=== PATIENT | female | born 1970 | race Caucasian/White ===

== ENCOUNTER 2020-12-09 21:30 | Emergency (ER) | payer OTHER ==
[2020-12-09 21:53] VITALS: RESP 18
[2020-12-09] MEDS ORDERED: diphenhydrAMINE 50 MG/ML 1 ML VIAL IVP STA (23:56)
[2020-12-09] MEDS ORDERED: SODIUM CHLORIDE 0.9% 1,000 ML IV STA (23:56)
[2020-12-09] MEDS ORDERED: ONDANSETRON 4 MG/2 ML VIAL IVP STA (23:56)
[2020-12-09] MEDS ORDERED: KETOROLAC 15 MG/ML 1 ML VIAL IVP STA (23:57)
--- NOTE | 2020-12-10 00:11 | ED ---
Headache HPI - General Chief Complaint: Headache Stated Complaint: Headache,Body aches Time Seen by Provider: 12/09/20 23:44 Mode of arrival: ambulatory Limitations: no limitations - History of Present Illness Initial Comments: Patient is a 50-year-old female presenting to the emergency Department with complaints of a headache that started 2 days ago. She is also complaining of body aches, fatigue and decreased appetite. She denies any recent covid exposures. She denies any cough, no chest pain or shortness of breath, no abdominal pain. She does have some mild nausea no vomiting or diarrhea. She states she has had headaches in the past. She denies any changes in her vision. No falls or trauma. She has no further complaints at this time. Upon arrival to the ER, her vital signs are stable. - Related Data Allergies Allergy/AdvReac Type Severity Reaction Status Date / Time No Known Allergies Allergy Verified 12/09/20 21:53 Review of Systems ROS Statement: Those systems with pertinent positive or pertinent negative responses have been documented in the HPI. ROS Other: All systems not noted in ROS Statement are negative. Past Medical History Past Medical History: No Reported History History of Any Multi-Drug Resistant Organisms: None Reported Past Surgical History: No Surgical Hx Reported Past Psychological History: No Psychological Hx Reported Smoking Status: Never smoker Past Alcohol Use History: None Reported Past Drug Use History: None Reported General Exam - General Exam Comments Initial Comments: GENERAL: Patient is well-developed and well-nourished. Patient is nontoxic and in no acute distress. HEAD: Atraumatic, normocephalic. EYES: Pupils equal round and reactive to light, extraocular movements intact, sclera anicteric, conjunctiva are normal. Eyelids were unremarkable. ENT: TMs normal, nares patent, oropharynx clear without exudates. Moist mucous membranes. NECK: Normal range of motion, supple without lymphadenopathy or JVD. LUNGS: Unlabored respirations. Breath sounds clear to auscultation bilaterally and equal. No wheezes rales or rhonchi. HEART: Regular rate and rhythm without murmurs, rubs or gallops. ABDOMEN: Soft, nontender, normoactive bowel sounds. No guarding, no rebound. No masses appreciated. : Deferred MUSCULOSKELETAL: Normal extremities with adequate strength and normal range of motion, no pitting or edema. No clubbing or cyanosis. NEUROLOGICAL: Patient is alert and oriented x 3. Motor and sensory are also intact. Cranial nerves II through XII grossly intact. Symmetrical smile. Normal speech, normal gait. PSYCH: Normal mood, normal affect. SKIN: Warm, Dry, normal turgor, no rashes or lesions noted. Limitations: no limitations Course Vital Signs 12/09/20 12/10/20 12/10/20 21:50 00:42 02:01 Temperature 98.6 F 102.7 F H 101.2 F H Pulse Rate 101 H 87 88 Respiratory 18 18 18 Rate Blood Pressure 112/69 127/74 110/67 O2 Sat by Pulse 97 99 94 L Oximetry Medical Decision Making - Medical Decision Making Patient is a 50-year-old female here with headache, body aches that started 2 days ago. No fevers, no neck pain. Her exam is unremarkable. Rapid Covid test is positive. Patient has no respirations symptoms today. Patient be given fluids, Toradol and Zofran. She was given Tylenol as well. She reports improvement in her symptoms and is stable for discharge. I recommend continuing increase her fluids, Tylenol Motrin for any chills or body aches. Patient is in agreement with this plan of care. Return parameters were discussed patient and she verbalized understanding. - Lab Data Lab Results 12/09/20 Range/Units 21:57 Coronavirus (PCR) Detected A (Not Detectd) Disposition Clinical Impression: COVID-19, Headache Disposition: HOME SELF-CARE Condition: Stable Instructions (If sedation given, give patient instructions): Coronavirus Disease 2019 (COVID-19) Additional Instructions: Please return to the Emergency Department if symptoms worsen or any other concerns. Continue to alternate between Tylenol and Motrin for fevers, headaches or body aches. Is patient prescribed a controlled substance at d/c from ED?: No Referrals: None,Stated [Primary Care Provider] - 1-2 days Time of Disposition: 02:17
[2020-12-10] MEDS ORDERED: ACETAMINOPHEN TAB 500 MG TAB PO STA (00:40)
[2020-12-10 02:29] VITALS: BP 100/67; PULSE 84; TEMP 99
== END 2020-12-10 02:29 | disposition home or self-care (01) ==
LOC: EC 21:30
DX: U07.1 COVID-19 (principal); R51.9 Headache, unspecified
CPT/HCPCS: 87635; 99284; 96374; 96375 ×2; 96361 ×2; J1200; J2405; J1885

== ENCOUNTER 2020-12-12 18:20 | Emergency (ER) | payer OTHER ==
[2020-12-12 18:25] VITALS: PULSE 92; TEMP 98.2
[2020-12-12] MEDS ORDERED: KETOROLAC 15 MG/ML 1 ML VIAL IVP STA (20:50)
[2020-12-12] MEDS ORDERED: ONDANSETRON 4 MG/2 ML VIAL IVP STA (20:50)
[2020-12-12] MEDS ORDERED: SODIUM CHLORIDE 0.9% 1,000 ML IV STA (20:50)
[2020-12-12] MEDS ORDERED: LORazepam 2 MG/ML INJ IV STA (20:51)
--- NOTE | 2020-12-12 20:54 | ED ---
General Adult HPI - General Chief complaint: Recheck/Abnormal Lab/Rx Stated complaint: Covid+, SOB Time Seen by Provider: 12/12/20 20:34 Source: patient Mode of arrival: wheelchair Limitations: no limitations - History of Present Illness Initial comments: 50-year-old female without any significant past medical history presents to the emergency room for a chief complaint of not feeling well. Patient reports she tested positive for coronary virus a few days ago. Patient states that she just feels very nauseous. States she is achy all over. States she has been taking Motrin and Tylenol which keeps the temperature down but not the pain. Slight sh ortness of breath.Patient has no other complaints at this time including shortness of breath, chest pain, abdominal pain, nausea or vomiting, headache, or visual changes. - Related Data Previous Rx's Medication Instructions Recorded Ondansetron [Zofran ODT] 4 mg PO Q8HR PRN #15 tab 12/12/20 Allergies Allergy/AdvReac Type Severity Reaction Status Date / Time No Known Allergies Allergy Verified 12/12/20 18:22 Review of Systems ROS Statement: Those systems with pertinent positive or pertinent negative responses have been documented in the HPI. ROS Other: All systems not noted in ROS Statement are negative. Past Medical History Past Medical History: No Reported History History of Any Multi-Drug Resistant Organisms: None Reported Past Surgical History: No Surgical Hx Reported Past Psychological History: No Psychological Hx Reported Smoking Status: Never smoker Past Alcohol Use History: None Reported Past Drug Use History: None Reported General Exam Limitations: no limitations General appearance: alert, in no apparent distress Head exam: Present: atraumatic, normocephalic, normal inspection Eye exam: Present: normal appearance, PERRL, EOMI. Absent: scleral icterus, conjunctival injection, periorbital swelling ENT exam: Present: normal exam, mucous membranes moist Neck exam: Present: normal inspection, full ROM. Absent: tenderness, meningismus, lymphadenopathy Respiratory exam: Present: normal lung sounds bilaterally. Absent: respiratory distress, wheezes, rales, rhonchi, stridor Cardiovascular Exam: Present: regular rate, normal rhythm, normal heart sounds. Absent: systolic murmur, diastolic murmur, rubs, gallop, clicks GI/Abdominal exam: Present: soft, normal bowel sounds. Absent: distended, tenderness, guarding, rebound, rigid Course Vital Signs 12/12/20 12/12/20 18:22 21:58 Temperature 98.2 F Pulse Rate 92 92 Respiratory 22 16 Rate Blood Pressure 110/56 117/77 O2 Sat by Pulse 97 95 Oximetry Medical Decision Making - Medical Decision Making Vitals are stable. CBC CMP unremarkable. Chest x-ray does show bilateral pneumonia. Patient was given fluids and medication including Toradol and Zofran. She has significant improvement in her symptoms. States she was actually able to sleep. At this time patient is comfortable discharge home. I did discuss to try to get a pulse oximeter to monitor her oxygen. However if she feels shortness of breath is worsening she'll return to the emergency room. Otherwise she can follow up with primary care.I discussed this case with attending Dr. Munoz who agrees with this assessment and treatment plan. - Lab Data Result diagrams: 12/12/20 21:03 12/12/20 21:03 Lab Results 12/12/20 12/12/20 Range/Units 21:03 21:03 WBC 9.7 (3.8-10.6) k/uL RBC 4.63 (3.80-5.40) m/uL Hgb 13.8 (11.4-16.0) gm/dL Hct 40.1 (34.0-46.0) % MCV 86.5 (80.0-100.0) fL MCH 29.7 (25.0-35.0) pg MCHC 34.3 (31.0-37.0) g/dL RDW 13.1 (11.5-15.5) % Plt Count 212 (150-450) k/uL MPV 7.9 Neutrophils % 92 % Lymphocytes % 5 % Monocytes % 2 % Eosinophils % 0 % Basophils % 0 % Neutrophils # 9.0 H (1.3-7.7) k/uL Lymphocytes # 0.5 L (1.0-4.8) k/uL Monocytes # 0.1 (0-1.0) k/uL Eosinophils # 0.0 (0-0.7) k/uL Basophils # 0.0 (0-0.2) k/uL Sodium 136 L (137-145) mmol/L Potassium 3.4 L (3.5-5.1) mmol/L Chloride 103 (98-107) mmol/L Carbon Dioxide 25 (22-30) mmol/L Anion Gap 8 mmol/L BUN 9 (7-17) mg/dL Creatinine 0.79 (0.52-1.04) mg/dL Est GFR (CKD-EPI)AfAm >90 (>60 ml/min/1.73 sqM) Est GFR (CKD-EPI)NonAf 87 (>60 ml/min/1.73 sqM) Glucose 97 (74-99) mg/dL Calcium 8.5 (8.4-10.2) mg/dL Total Bilirubin 0.6 (0.2-1.3) mg/dL AST 37 H (14-36) U/L ALT 17 (4-34) U/L Alkaline Phosphatase 69 (38-126) U/L Total Protein 6.4 (6.3-8.2) g/dL Albumin 3.6 (3.5-5.0) g/dL Disposition Clinical Impression: COVID-19 Disposition: HOME SELF-CARE Condition: Good Instructions (If sedation given, give patient instructions): Coronavirus Disease 2019 (COVID-19) Additional Instructions: Please follow up with primary care in 1-2 days. Return to the emergency room for any worsening symptoms. Prescriptions: Ondansetron [Zofran ODT] 4 mg PO Q8HR PRN #15 tab PRN Reason: Nausea Is patient prescribed a controlled substance at d/c from ED?: No Referrals: Mallory Tenorio MD [REFERRING] - 1-2 days Time of Disposition: 22:18
[2020-12-12 21:19] LABS: ALT 17 U/L (4-34); AST 37 U/L (14-36); African American GFR (CKD) >90 (>60 ml/min/1.73 sqM); Albumin 3.6 g/dL (3.5-5.0); Alkaline Phosphatase 69 U/L (38-126); Anion Gap 8 mmol/L; Blood Urea Nitrogen 9 mg/dL (7-17); Calcium 8.5 mg/dL (8.4-10.2); Carbon Dioxide 25 mmol/L (22-30); Chloride 103 mmol/L (98-107); Glucose 97 mg/dL (74-99); Non-African American GFR(CKD) 87 (>60 ml/min/1.73 sqM); Potassium 3.4 mmol/L (3.5-5.1); Sodium 136 mmol/L (137-145); Total Bilirubin 0.6 mg/dL (0.2-1.3); Total Protein 6.4 g/dL (6.3-8.2)
--- NOTE | 2020-12-12 21:25 | XR ---
EXAMINATION: XR chest 1V portable DATE AND TIME: 12/12/2020 9:20 PM CLINICAL INDICATION: PHH; cough TECHNIQUE: AP portable COMPARISON: None FINDINGS: The lungs demonstrate multifocal bilateral ill-defined dense consolidations, more prominent on the le ft. The pattern suggests atypical pneumonia. The pleural spaces are negative. The cardiac silhouette is unremarkable. The skeletal structures and soft tissues are negative for acute findings. IMPRESSION: Prominent bilateral pneumonia pattern.
[2020-12-12 21:28] LABS: Basophils % (A) 0 %; Eosinophils % (A) 0 %; HCT 40.1 % (34.0-46.0); HGB 13.8 gm/dL (11.4-16.0); Lymphocytes # (A) 0.5 k/uL (1.0-4.8); Lymphocytes % (A) 5 %; MCH 29.7 pg (25.0-35.0); MCHC 34.3 g/dL (31.0-37.0); MCV 86.5 fL (80.0-100.0); Mean Platelet Volume 7.9; Monocytes # (A) 0.1 k/uL (0-1.0); Monocytes % (A) 2 %; Neutrophils % (A) 92 %; Platelet Count 212 k/uL (150-450); RBC 4.63 m/uL (3.80-5.40); RDW 13.1 % (11.5-15.5); WBC 9.7 k/uL (3.8-10.6)
[2020-12-12 21:59] VITALS: BP 117/77; RESP 16
[2020-12-12] MEDS ORDERED: ACET/COD 300 MG/30 MG STARTER PACK 6 TAB BTL PO STA (22:19)
== END 2020-12-12 22:32 | disposition home or self-care (01) ==
LOC: EC 18:20
DX: U07.1 COVID-19 (principal)
CPT/HCPCS: 36415; 80053; 85025; 71045; 99285; 96374; 96375; 96361; J2060; J2405; J1885